=== PATIENT | female | born 2000 | race Caucasian/White ===

== ENCOUNTER 2022-03-09 19:33 | Emergency (ER) | payer MEDICAID, SELFPAY ==
[2022-03-09 19:49] VITALS: BP 139/88; PULSE 118; RESP 16; TEMP 36.8; O2SAT 98
[2022-03-09 19:51] VITALS: RESP 16; O2SAT 98
--- NOTE | 2022-03-09 20:04 | ED.FEVER ---
HPI - Fever General Chief Complaint: Fever Stated Complaint: fever Time Seen by Provider: 03/09/22 19:42 History of Present Illness HPI Narrative: 21-year-old female presents the emergency room for evaluation of subjective fever. Patient states yesterday she developed mild sore throat, sinus congestion, postnasal drip and occasional productive cough. Patient also complaining of body aches and headache. Patient states that she was nauseated earlier today so she was unable to keep down any food or fluids and Tylenol. Denies dysuria denies abdominal pain denies vaginal bleeding denies back pain. Related Data Allergies Allergy/AdvReac Type Severity Reaction Status Date / Time No Known Allergies Allergy Verified 03/09/22 19:53 Review of Systems Review of Systems: CONSTITUTIONAL: Reports fever EYES: Denies visual changes, redness, or discharge. ENT: Reports rhinorrhea, congestion, sore throat, or otalgia. CARDIOVASCULAR: Denies chest pain, palpitations, or edema. RESPIRATORY: Denies cough or dyspnea. GASTROINTESTINAL: Denies abdominal pain, nausea, vomiting, or diarrhea. GENITOURINARY: Denies dysuria or hematuria. SKIN: Denies rash or itching. MUSCULOSKELETAL: Reports myalgias NEUROLOGIC: Denies headache, numbness, dizziness, or weakness. PSYCHIATRIC: Denies anxiety or depression. Exam Narrative: GENERAL: Well-appearing, well-nourished, and in no acute distress. HEAD: Normocephalic, atraumatic. EYES: PERRLA and EOMI. ENT: Nares clear, no rhinorrhea or epistaxis. Mucous membranes moist. Oropharynx without tonsillar hypertrophy exudate or other lesions. Bilateral TMs pearly garcia nonbulging NECK: Supple. No adenopathy or masses. No carotid bruits or JVD CHEST: Clear to auscultation. No respiratory distress. No wheezes rales or rhonchi HEART: Regular rate and rhythm. No murmur heard. Normal peripheral pulses. ABDOMEN: Soft, nontender, nondistended, normal active bowel sounds. EXTREMITIES: Normal range of motion. No edema. SKIN: Warm, dry, no rash. NEURO: No focal deficits. Alert and oriented x3. PSYCH: Normal mood and affect. Course Vital Signs Vital signs: Vital Signs Temperature 36.8 C 03/09/22 19:49 Pulse Rate 118 H 03/09/22 19:49 Respiratory Rate 16 03/09/22 19:49 Blood Pressure 139/88 03/09/22 19:49 Pulse Oximetry 98 03/09/22 19:49 Temperature 36.8 C 03/09/22 19:49 Pulse Rate 118 H 03/09/22 19:49 Respiratory Rate 16 03/09/22 19:51 Blood Pressure 139/88 03/09/22 19:49 Pulse Oximetry 98 03/09/22 19:51 MDM - Fever MDM Narrative Medical decision making narrative: 21-year-old female presents the emergency room for evaluation of body aches and subjective fever. Patient complaining of sinus congestion, postnasal drip, runny nose, body aches, and occasional productive cough since yesterday. Flu and COVID swabs were both negative. Long test was negative strep test was negative as well. Prior to discharge,. Patient stated that she was having some dysuria and frequent urination for the past couple of days. Denied any suprapubic pain or lower back pain. Urine came back suspicious of a UTI. Will medicate patient with Keflex. Lab Data Labs: Lab Results 03/09/22 03/09/22 03/09/22 Range/Units 20:07 21:02 21:02 Urine Color (Yellow) Urine Appearance (Clear) Urine pH (5.0-9.0) Ur Specific [place] (1.001-1.035) Urine Protein (Negative) mg/dL Urine Glucose (UA) (Negative) mg/dL Urine Ketones (Negative) mg/dL Ur Blood (Man) (Negative) Urine Nitrate (Negative) Urine Bilirubin (Negative) Urine Urobilinogen (<2.0) mg/dL Leukocyte Esterase Rfl (Negative) BENJAMIN/UL Urine RBC (0-2) /hpf Urine WBC /hpf Ur Squamous Epith Cells (Few) /hpf Urine Bacteria /hpf Urine Mucus /lpf Monoscreen Negative (Negative) Influenza A (RT-PCR) Negative (Negative) Influenza B (RT-PCR) Negative (Negativ
[2022-03-09] MEDS: ONDANSETRON HCL ODT 4 MG TABLET PO (20:05)
[2022-03-09 20:49] LABS: Influenza A QL RT-PCR Negative (Negative); Influenza B QL RT-PCR Negative (Negative); SARS-CoV-2 RNA PCR Negative
[2022-03-09 21:34] LABS: Monoscreen Negative (Negative); Negative Monotest Control Negative (Negative); Positive Monotest Control Positive (Positive)
[2022-03-09 21:35] LABS: Appearance Urine Clear (Clear); Bilirubin Urine 1+ (Negative); Blood Urine Negative (Negative); Color Urine Yellow (Yellow); Glucose Urine UA Negative (Negative); Ketones Urine 2+ mg/dL (Negative); Leukocyte Esterase Ur 1+ LEU/UL (Negative); Nitrate Urine Negative (Negative); Protein Urine 1+ mg/dL (Negative)
[2022-03-09 21:41] LABS: Bacteria Urine 2+ /hpf; Mucus Urine Moderate /lpf; Squamous Epithelial Cell Urine Many /hpf (Few); WBC Urine 31-50 /hpf
[2022-03-09 21:42] LABS: Add Urine Microscopic? YES
[2022-03-09] MEDS: CEPHALEXIN 500 MG CAPSULE PO (22:04)
[2022-03-09 22:10] VITALS: BP 122/76; PULSE 100; RESP 20; TEMP 36.7; O2SAT 98
== END 2022-03-09 22:11 | disposition home or self-care (01) ==
PROVIDERS: Emergency Provider Nurse Practitioner Family
DX: N39.0 Urinary tract infection, site not specified (principal); Z20.822 Contact with and (suspected) exposure to COVID-19
CPT/HCPCS: 81001; 86308; 87081; 87086; 87088; 87502; 87880; 99283; A9270; C9803; U0003; U0005

== ENCOUNTER 2022-07-05 21:57 | Observation (INO) | payer OTHER, SELFPAY ==
[2022-07-05 22:00] VITALS: BMI 40.8
[2022-07-05 22:15] VITALS: BP 132/89; PULSE 103
[2022-07-05 22:16] VITALS: BP 128/87; PULSE 98
[2022-07-05 22:31] VITALS: BP 136/87; PULSE 94
[2022-07-05 22:46] VITALS: BP 131/81; PULSE 96
[2022-07-05 23:01] VITALS: BP 114/79; PULSE 95
[2022-07-05 23:15] VITALS: BP 129/82; PULSE 92
--- NOTE | 2022-07-09 07:23 | PM.OBTRLD ---
OB - Triage/Final Diagnosis Visit Information Reason for evaluation: threatened labor Comments/Additional reasons for admission: I have assessed the risk for this patient, Vivian Mallory, and determined that she would benefit from observation care.
== END 2022-07-05 23:45 | disposition home or self-care (01) ==
PROVIDERS: Admitting Provider Obstetrics & Gynecology; Visit Provider Obstetrics & Gynecology
DX: O47.03 False labor before 37 completed weeks of gestation, third trimester (principal); Z3A.33 33 weeks gestation of pregnancy
CPT/HCPCS: G0378; G0379

== ENCOUNTER 2022-07-25 15:03 | Emergency (ER) | payer OTHER, SELFPAY ==
[2022-07-25 15:09] VITALS: BP 133/89; PULSE 99; RESP 18; TEMP 36.8; O2SAT 100
--- NOTE | 2022-07-25 15:34 | ED.EAR ---
HPI - Ear Problem General Chief complaint: Ear Stated complaint: ear pain, trouble hearing Time Seen by Provider: 07/25/22 15:34 Source: patient, RN notes reviewed and old records reviewed Mode of arrival: ambulatory Limitations: no limitations History of Present Illness HPI Narrative: 21-year-old female presents to the [facility] with complaints of ear pain and trouble hearing. Has been going on for several days. States it is in both ears, severity changes from ear to ear. Patient has not taken anything because she is 36 weeks . Did see her OB 2 days ago. Denies fevers. MD Complaint: ear pain Related Data Home Medications Medication Instructions Recorded Confirmed aspirin 81 mg tablet,delayed 81 mg PO DAILY 06/19/22 07/23/22 release vits no.126-ferrous fum tablet PO 06/19/22 07/23/22 28 mg iron-folic acid 800 mcg tablet (Classic ) ferrous sulfate 325 mg (65 mg 325 mg PO DAILY 07/02/22 07/23/22 iron) tablet folic acid 800 mcg tablet 0.8 mg PO DAILY 07/02/22 07/23/22 Allergies Allergy/AdvReac Type Severity Reaction Status Date / Time No Known Allergies Allergy Verified 07/23/22 13:48 Review of Systems Review of Systems: All systems reviewed & are unremarkable except as noted in HPI and below Constitutional: Constitutional: Reports no additional constitutional complaints, Denies chills and Denies fever(s) Eyes: Eyes: Reports no additional eye complaints ENT: Reports as per HPI, Denies change in voice, Denies dental pain, Denies vertigo, Denies dizziness and Denies throat swelling Comments: Ear pain, bilateral Cardiovascular: Cardiovascular: Reports no additional cardiovascular complaints, Denies chest pain and Denies dyspnea Respiratory: Respiratory: Reports no additional respiratory complaints, Denies cough and Denies dyspnea Gastrointestinal: Gastrointestinal: Reports no additional gastrointestinal complaints, Denies abdominal pain, Denies nausea and Denies vomiting Musculoskeletal: Musculoskeletal: Reports no additional musculoskeletal complaints Integumentary/Breasts: Skin/Breast: Reports system reviewed and no additional complaints, except as docu Neurologic: Reports system reviewed and no additional complaints, except as documented, Denies vertigo and Denies dizziness Psychiatric: Psychiatric: Reports no additional psychiatric complaints Allergic/Immunologic: Allergic/Immunologic: Reports no additional allergic/immunologic complaints and Denies throat swelling PMFSH Past Medical History Medical History Amenorrhea, primary PCOS (polycystic ovarian syndrome) Family History Family History Mother Hypertension Other Heart disease Social History Social History Smoking status: Never smoker Alcohol intake: never Substance use: never Substance use type: does not use Additional living arrangements comments: Engaged Gender identity (if verbalized by the patient): Female Sexual Orientation (if Verbalized by the Patient): Straight or Heterosexual Comments At the time of my signature, I reviewed and agree with the nursing past medical, surgical, social, and family history. There is no relevant family history pertinent to the patient complaint. Exam Const: General: healthy appearing, no acute distress and well nourished Nutritional Appearance: well nourished Orientation/consciousness: patient oriented x3 Limitations: no limitations HENMT: Head: normal to inspection Ears: external ears normal, EAC's normal and TM abnormal bulging on the left and erythematous on the left Face/Nose/Sinus: Normal external nose present, Normal nasal mucous membranes and turbinates present and normal facial exam Face and sinus: normal facial exam Mouth: Yes Normal oral and palatal mucosa present Throat:
== END 2022-07-25 15:45 | disposition home or self-care (01) ==
PROVIDERS: Emergency Provider Nurse Practitioner
DX: O99.891 Other specified diseases and conditions complicating pregnancy (principal); H66.92 Otitis media, unspecified, left ear; Z3A.36 36 weeks gestation of pregnancy
CPT/HCPCS: 59025; 99213; G0463

== ENCOUNTER 2022-08-08 11:12 | Outpatient (RCR) | payer OTHER, SELFPAY ==
[2022-07-08 16:30] VITALS: BP 121/79; PULSE 95
[2022-07-18 16:05] VITALS: BP 126/81; PULSE 88
[2022-07-22 15:04] VITALS: BP 119/78; PULSE 99
[2022-07-25 14:52] VITALS: BP 114/86; PULSE 98
[2022-07-29 14:59] VITALS: BP 135/78; PULSE 89
[2022-08-01 16:06] VITALS: BP 125/81; PULSE 88
[2022-08-05 10:10] VITALS: BP 134/90; PULSE 93
--- NOTE | ~2022-08-08 | US_ITS ---
EXAMINATION: US OB BPP wo non-stress DATE: 07/29/2022 15:08 INDICATION: weight difference during third trimester TECHNIQUE: Real-time ultrasound of the pelvis was performed. COMPARISON: 07/22/2022 FINDINGS: There are two living fetuses. The placenta(s) is/are anterior. The amniotic fluid volume is normal. Fetus A: Presentation is vertex. heart rate is 134 beats per minute (bpm). Biophysical profile performed by the technologist: breathing (30 sec sustained breathing in 30 minutes): 2 out of 2 movement (3 gross body movements in 30 minutes): 2 out of 2 tone (one episode of npiipmb-hgtkurtpm-gbifhzy limb movement): 2 out of 2 Amniotic fluid pocket (2 cm): 2 out of 2 Total score: 8 out of 8 Fetus B: Presentation is in transverse lie. heart rate is 136 bpm. Biophysical profile performed by the technologist: breathing (30 sec sustained breathing in 30 minutes): 2 out of 2 movement (3 gross body movements in 30 minutes): 2 out of 2 tone (one episode of xhwruop-mzctnxjml-wubvsek limb movement): 2 out of 2 Amniotic fluid pocket (2 cm): 2 out of 2 Total score: 8 out of 8 IMPRESSION: 1. Living twin fetuses. 2. Normal placenta(s). 3. Biophysical profile 8 out of 8 for fetus A and 8 out of 8 for fetus B. Reviewed, dictated and finalized at location A.
--- NOTE | ~2022-08-08 | US_ITS ---
EXAMINATION: US OB BPP multi gestation DATE: 07/08/2022 16:09 INDICATION: Biophysical profile during third trimester TECHNIQUE: Real-time ultrasound of the pelvis was performed. COMPARISON: None. FINDINGS: There are two living fetuses. The placenta(s) is/are anterior. The amniotic fluid volume is subjecti vely normal. Fetus A: Presentation is vertex. heart rate is 145 beats per minute (bpm). Biophysical profile performed by the technologist: breathing (30 sec sustained breathing in 30 minutes): 2 out of 2 movement (3 gross body movements in 30 minutes): 2 out of 2 tone (one episode of pvwurvq-neytqbyys-wiusxaj limb movement): 2 out of 2 Amniotic fluid pocket (2 cm): 2 out of 2 Total score: 8 out of 8 Fetus B: Presentation is transverse. heart rate is 148 bpm. Biophysical profile performed by the technologist: breathing (30 sec sustained breathing in 30 minutes): 2 out of 2 movement (3 gross body movements in 30 minutes): 2 out of 2 tone (one episode of bhfxgue-rdptgzrhe-ngpvlop limb movement): 2 out of 2 Amniotic fluid pocket (2 cm): 2 out of 2 Total score: 8 out of 8 IMPRESSION: 1. Living twin fetuses. 2. Normal placenta(s). 3. Biophysical profile 8 out of 8 for fetus A and 8 out of 8 for fetus B. Reviewed, dictated and finalized at location A.
--- NOTE | ~2022-08-08 | US_ITS ---
EXAMINATION: US OB BPP multi gestation DATE: 07/22/2022 16:10 INDICATION: Biophysical profile during third trimester twin TECHNIQUE: Real-time ultrasound of the pelvis was performed. COMPARISON: None. FINDINGS: There are two living fetuses. The placenta(s) is/are anterior. The amniotic fluid volume is subjecti vely normal. Fetus A: Presentation is vertex. heart rate is 133 beats per minute (bpm). Biophysical profile performed by the technologist: breathing (30 sec sustained breathing in 30 minutes): 2 out of 2 movement (3 gross body movements in 30 minutes): 2 out of 2 tone (one episode of hheqssj-sfvkplogn-miijqor limb movement): 2 out of 2 Amniotic fluid pocket (2 cm): 2 out of 2 Total score: 8 out of 8 Fetus B: Presentation is transverse with the head to the maternal left. heart rate is 130 bpm. Biophysical profile performed by the technologist: breathing (30 sec sustained breathing in 30 minutes): 2 out of 2 movement (3 gross body movements in 30 minutes): 2 out of 2 tone (one episode of gxskayo-rksnlrkdl-hqnjztk limb movement): 2 out of 2 Amniotic fluid pocket (2 cm): 2 out of 2 Total score: 8 out of 8 IMPRESSION: 1. Living twin fetuses. 2. Normal placenta(s). 3. Biophysical profile 8 out of 8 for fetus A and 8 out of 8 for fetus B. Reviewed, dictated and finalized at location A.
--- NOTE | ~2022-08-08 | US_ITS ---
EXAMINATION: US OB BPP multi gestation DATE: 07/18/2022 16:10 CDT INDICATION: Twin gestation TECHNIQUE: Real-time transabdominal obstetric ultrasound. FINDINGS: 07/08/2022 Twin living intrauterine with placenta located anterior. Twin A is in vertex presentation w ith heart rate of 141 BPM. Twin B is in transverse presentation with heart rate of 135 BP M. Twin A: Biophysical profile: breathin of 2 movement: 2 of 2 tone: 2 of 2 Amniotic flud pocket: 2 of 2 Total score: 8 of 8 Twin B: Biophysical profile: breathin of 2 movement: 2 of 2 tone: 2 of 2 Amniotic flud pocket: 2 of 2 Total score: 8 of 8 IMPRESSION: 1. Twin living intrauterine . 2: Total biophysical profile score of 8/8 for both twins. Reviewed, dictated and finalized at location A.
--- NOTE | ~2022-08-08 | US_ITS ---
EXAMINATION: US OB BPP multi gestation DATE: 08/05/2022 11:57 INDICATION: Twin during third trimester. Assess biophysical profile. TECHNIQUE: Real-time ultrasound of the pelvis was performed. The interpreting radiologist was not pre sent for the study. COMPARISON: None. FINDINGS: Chronic diamniotic pregnancies with thick membrane two living fetuses. The placenta(s) is /are anterior. The amniotic fluid volume is subjectively normal. Fetus A: Fetus a is in the more caudally positioned gestational sac and is in vertex position. cardiac a ctivity and movement are noted. heart rate is 130 beats per minute (bpm). Biophysical profile performed by the technologist: breathing (30 sec sustained breathing in 30 minutes): 0 out of 2 movement (3 gross body movements in 30 minutes): 2 out of 2 tone (one episode of gxfqtzc-unagcijnx-xvbjovh limb movement): 2 out of 2 Amniotic fluid pocket (2 cm): 2 out of 2 Total score: 6 out of 8 Fetus B: Fetus B is in the more cephalad positioned gestational sac and is in transverse lie with vertex to ma ternal left. cardiac activity and movement are noted. heart rate is 132 bpm. Biophysical profile performed by the technologist: breathing (30 sec sustained breathing in 30 minutes): 2 out of 2 movement (3 gross body movements in 30 minutes): 2 out of 2 tone (one episode of iiiypvd-vmcrniyru-omvvges limb movement): 2 out of 2 Amniotic fluid pocket (2 cm): 2 out of 2 Total score: 8 out of 8 IMPRESSION: 1. Living twin fetuses. 2. Biophysical profile 6 out of 8 for fetus A and 8 out of 8 for fetus B. Reviewed, dictated and finalized at location A.
--- NOTE | 2022-08-08 11:48 | PC.NURSE ---
Dr. Khan returned page and informed BP's 132/92, 124/94, 128/91, and 132/90. Pt denies headache, visual disturbance, epigastric/RUQ pain. Slight swelling in feet, but no pitting. Orders received for labs.
[2022-08-08 12:23] LABS: Basophils Percent Auto 0.3 % (0.2-1.2); Eosinophils Absolute Auto 0.1 K/mm3 (0-0.3); Eosinophils Percent Auto 0.6 % (0-4.4); Hematocrit 35.3 % (37.0-47.0); Hemoglobin 11.1 g/dL (12.0-15.0); Immature Granulocyte Absolute 0.13 K/mm3 (0.00-0.031); Immature Granulocyte Percent A 1.1 % (0-0.5); Immature Platelet Fraction Pct 17.1 % (0.9-11.2); Lymphocytes Absolute Auto 2.72 K/mm3 (0.9-3.2); Lymphocytes Percent Auto 23.7 % (18.3-44.2); Mean Corpuscular HGB Conc 31.4 g/dl (32-36); Mean Corpuscular Hemoglobin 25.5 pg (26-34); Mean Corpuscular Volume 81.1 fl (80-100); Mean Platelet Volume 11.7 fl (7.4-10.4); Monocytes Absolute Auto 0.6 K/mm3 (0.1-0.6); Neutrophils Absolute Auto 7.9 K/mm3 (1.3-6.7); Neutrophils Percent Auto 69.3 % (45.5-73.1); Nucleated Red Blood Cells Perc 0.3 % (0.0-0.2); Platelet Count Result 148 k/mm3 (150-375); Red Blood Count 4.35 M/mm3 (4.2-5.4); Red Cell Distribution Width 17.6 % (11.5-14.5); White Blood Count 11.5 K/mm3 (4.5-10.0)
[2022-08-08 12:34] LABS: Alanine Aminotransferase 13 U/L (6-35); Albumin Level 3.5 g/dL (3.5-5.1); Alkaline Phosphatase 186 U/L (38-126); Anion Gap 11 mmol/L (8-16); Aspartate Amino Transferase 20 U/L (14-36); Bilirubin,Total 1.2 mg/dL (0.2-1.3); Blood Urea Nitrogen 10 mg/dL (7-17); Calcium 8.7 mg/dL (8.4-10.2); Carbon Dioxide 23 mmol/L (22-30); Chloride 104 mmol/L (98-107); Estimated Glomerular Filt Rate > 60; Glucose 84 mg/dL (65-110); Potassium 3.6 mmol/L (3.4-5.0); Sodium 138 mmol/L (137-145)
[2022-08-08 12:36] LABS: Total Protein Urine Random 33 mg/dL; Ur Ttl Prot Creatinine Ratio 0.29 mg/mg (0-0.20)
[2022-08-08 12:37] LABS: Add Urine Microscopic? YES; Appearance Urine Cloudy (Clear); Bacteria Urine Trace /hpf; Bilirubin Urine Negative (Negative); Blood Urine Negative (Negative); Color Urine Yellow (Yellow); Glucose Urine UA Negative (Negative); Ketones Urine Negative (Negative); Leukocyte Esterase Ur Trace LEU/UL (Negative); Mucus Urine Rare /lpf; Nitrate Urine Negative (Negative); Protein Urine 1+ mg/dL (Negative); RBC Urine 0-2 /hpf (0-2); Specific Grav Ur 1.017 (1.001-1.035); Squamous Epithelial Cell Urine Few /hpf (Few); Urobilinogen Urine Negative mg/dL (<2.0)
--- NOTE | 2022-08-08 12:41 | PC.NURSE ---
Dr. Khan called back after reviewing lab results and states pt can go home. Pt has appointment in the office on Thursday.
[2022-08-08 12:50] VITALS: BP 128/90; PULSE 99
--- NOTE | 2022-08-21 10:21 | PM.OBDSVD ---
DS: Admitting Diagnosis Discharge Date Admitting Diagnosis OB - DS: Summary OB Procedures : NST OB Procedures Intrapartum: OB Procedures: : None Time Spent with Patient Time attestation: Total time spent providing and/or coordinating discharge services: Discharge Plan Departure Attending Physician: Jasbir Khan Primary Care Provider: PHYSICIAN,BANQUET SERVER ON CALL Prescriptions: No Action Classic 28 mg iron- 800 mcg tablet PO ferrous sulfate 325 mg (65 mg iron) tablet 325 mg PO DAILY hydrocodone-acetaminophen 5-325 mg Tablet 1 tablet PO Q4-6H PRN (Reason: Moderate Pain (4-6)) Qty: 30 0RF ibuprofen 600 mg Tablet 600 mg PO Q6H PRN (Reason: Cramping) Qty: 30 0RF
== END 2022-09-12 07:40 | disposition home or self-care (01) ==
LOC: ANHOBOP 11:12
PROVIDERS: Visit Provider Obstetrics & Gynecology
DX: O30.003 Twin pregnancy, unspecified number of placenta and unspecified number of amniotic sacs, third trimester (principal); Z3A.33 33 weeks gestation of pregnancy; Z3A.35 35 weeks gestation of pregnancy; Z3A.37 37 weeks gestation of pregnancy
CPT/HCPCS: 36415; 59025; 76819; 80053; 81001; 82570; 84156; 84550; 85025; 85055

== ENCOUNTER 2022-08-12 06:37 | Inpatient (IN) | payer OTHER, SELFPAY ==
--- NOTE | 2022-07-29 14:04 | PC.NURSE ---
Verified with OR schedule and Patient--C/S for twins on 08/05/22 at 0730
[2022-08-12] VITALS (47 sets, daily range): BP systolic 107–164; BP diastolic 63–149; PULSE 73–157; RESP 14–19; TEMP 36–36.6; O2SAT 98–100; BMI 42.0
--- OUTSIDE RECORDS SUMMARY | 2022-08-12 06:46 | XMS_ITS ---
:2000 Author Care Team Providers Name Role Phone Vandana Mujica Primary Care Provider Unavailable Allergies Code Code System Name Reaction Severity Status Onset NKDA ? Medications Name Status Start Date Stop Date ? ? Aurovela Fe 1.5/30 (28) 1.5 mg-30 mcg (21)/75 mg (7) tablet Comp leted ? 02/24/2022 TAKE 1 TABLET BY MOUTH EVERY DAY cephalexin 500 mg capsule Active ? Not av ailable clomiphene citrate 50 mg tablet Completed ? 03/28/2022 TAKE 1 TABLET BY MOUTH EVERY DAY FOR THE FIRST 10 DAYS OF [facility] fluconazole 150 mg tablet Active ? Not av ailable medroxyprogesterone 10 mg tablet Completed ? 03/28/2022 TAKE 1 TABLET BY MOUTH DAILY FOR 7 DAYS metformin 500 mg tablet Completed ? 03/28/20 22 TAKE 1 TABLET BY MOUTH TWICE DAILY WITH MEALS Vienva 0.1 mg-20 mcg tablet Completed ? 03/12 TAKE 1 TABLET BY MOUTH EVERY DAY Problems Name Status Onset Date Source ? Body Mass Index 30+ - Obesity Active 02/24/2022 ? Monochorionic Diamniotic Twin Active 02/25/20 22 ? Polycystic Ovary Syndrome Active 02/24/2022 ? Supervision of with History of Infertility Active 02/24/2022 ? Unknown 03/28/2022 ? Maternal Obesity Complicating , Childbirth and the Acti ve ? ? Puerperium, Antepartum Dichorionic Diamniotic Twin Active ? ? Procedures Date Name Performed by ? 02/24/2022 US, Obstetric, Limited [facility] [address] [place] [address] [phone]
--- NOTE | 2022-08-12 07:13 | LDADM ---
This patient, Vivian Mallory, was admitted to Labor/Delivery/Recovery 120 on 08/12/22 at 06:37. Plans for labor, pain management and were discussed with patient. Patient/family oriented to hospital policies and general routines including ID bracelet, bed and alarms, visiting hours, pain management, procedures, bathroom and other care routines, personal items, smoking policy, room service/diet and guest tray routines, security routines, and visiting hours. Patient/Family are encouraged to report perceived risks to care and to ask questions if they do not understand what they are told or what they should do. See OBIX for further documentation.
--- NOTE | 2022-08-12 07:21 | WPDHPUPDATE1 ---
History and Physical Update Update Date/Time: 08/12/22 07:21 Year old female presents for primary delivery. Have been scheduled last week but declined delivery. Ultrasound yesterday revealed vertex breech presentation and now she agrees to operative delivery. We will proceed with delivery. History and Physical has been reviewed, including an updated exam of the patient. There are NO changes in the patient's condition. Risks, benefits, and alternatives have been discussed and questions answered. Patient agrees to proceed with procedure.
[2022-08-12 07:54] LABS: Basophils Percent Auto 0.3 % (0.2-1.2); Eosinophils Absolute Auto 0.1 K/mm3 (0-0.3); Eosinophils Percent Auto 0.5 % (0-4.4); Hematocrit 38.4 % (37.0-47.0); Hemoglobin 11.9 g/dL (12.0-15.0); Immature Granulocyte Absolute 0.06 K/mm3 (0.00-0.031); Immature Granulocyte Percent A 0.5 % (0-0.5); Immature Platelet Fraction Pct 18.2 % (0.9-11.2); Lymphocytes Absolute Auto 3.02 K/mm3 (0.9-3.2); Lymphocytes Percent Auto 25.3 % (18.3-44.2); Mean Corpuscular Hemoglobin 26.3 pg (26-34); Mean Platelet Volume 13.3 fl (7.4-10.4); Monocytes Absolute Auto 0.7 K/mm3 (0.1-0.6); Monocytes Percent Auto 5.6 % (2.6-8.5); Neutrophils Absolute Auto 8.1 K/mm3 (1.3-6.7); Neutrophils Percent Auto 67.8 % (45.5-73.1); Nucleated Red Blood Cells Perc 0.2 % (0.0-0.2); Platelet Count Result 165 k/mm3 (150-375); Red Blood Count 4.52 M/mm3 (4.2-5.4); Red Cell Distribution Width 19.1 % (11.5-14.5)
--- NOTE | 2022-08-12 08:09 | WPDANESEPPF ---
Anes - Initial Pre Proc Eval Procedure: Operation Date: 08/05/22 07:30 Proposed Procedures p Primary Section - Jasbir Khan MD Operation Date: 08/12/22 08:30 Proposed Procedures p Section - Jasbir Khan MD Date/Time: 08/12/22 08:09 Surgeon: Jasbir Khan MD Pre Op Diagnosis: IOL/TWINS Patient Data Age: 21 Gender: F Height: 1.68 m Weight: 118 kg Last Vital Signs Pulse 99 08/12/22 07:16 BP 137/96 H 08/12/22 07:16 O2 Del Method Room Air 08/12/22 07:12 Allergies Allergy/AdvReac Type Severity Reaction Status Date / Time No Known Allergies Allergy Verified 08/05/22 08:58 Home Medications Medication Instructions Recorded Confirmed Type aspirin 81 mg tablet,delayed 81 mg PO DAILY 06/19/22 08/12/22 History release vits no.126-ferrous fum tablet PO 06/19/22 08/05/22 History 28 mg iron-folic acid 800 mcg tablet (Classic ) ferrous sulfate 325 mg (65 mg 325 mg PO DAILY 07/02/22 08/12/22 History iron) tablet folic acid 800 mcg tablet 0.8 mg PO DAILY 07/02/22 08/12/22 History Laboratory Tests 08/12/22 08/12/22 08/12/22 07:01 07:01 07:01 WBC 12.0 K/mm3 H K/mm3 (4.5-10.0) RBC 4.52 M/mm3 M/mm3 (4.2-5.4) Hgb 11.9 g/dL L g/dL (12.0-15.0) Hct 38.4 % % (37.0-47.0) MCV 85.0 fl fl (80-100) MCH 26.3 pg pg (26-34) MCHC 31.0 g/dl L g/dl (32-36) RDW 19.1 % H % (11.5-14.5) Plt Count 165 k/mm3 k/mm3 (150-375) MPV 13.3 fl H fl (7.4-10.4) Immature Gran % (Auto) 0.5 % % (0-0.5) Neut % (Auto) 67.8 % % (45.5-73.1) Lymph % (Auto) 25.3 % % (18.3-44.2) [place] % (Auto) 5.6 % % (2.6-8.5) Eos % (Auto) 0.5 % % (0-4.4) Baso % (Auto) 0.3 % % (0.2-1.2) Lymph # (Auto) 3.02 K/mm3 K/mm3 (0.9-3.2) [place] # (Auto) 0.7 K/mm3 H K/mm3 (0.1-0.6) Eos # (Auto) 0.1 K/mm3 K/mm3 (0-0.3) Baso # (Auto) 0.0 K/mm3 K/mm3 (0.0-0.1) Abs Immat Gran (auto) 0.06 K/mm3 H K/mm3 (0.00-0.031) Absolute Neuts (auto) 8.1 K/mm3 H K/mm3 (1.3-6.7) Absolute Nucleated RBC 0.0 K/mm3 K/mm3 (0.0-0.012) Nucleated RBC % 0.2 % % (0.0-0.2) % Immature Plt Fraction 18.2 % H % (0.9-11.2) Sodium Potassium Chloride Carbon Dioxide Anion Gap BUN Creatinine Estim Creat Clear Calc Estimated GFR Glucose Calcium Total Bilirubin AST ALT Alkaline Phosphatase Total Protein Albumin RPR Pending Hep Bs Antigen HIV 1&2 Ab/P24 Ag 4thGn Rubella IgG Antibody Pending 08/12/22 08/12/22 08/12/22 07:01 07:01 07:45 WBC RBC Hgb Hct MCV MCH MCHC RDW Plt Count MPV Immature Gran % (Auto) Neut % (Auto) Lymph % (Auto) [place] % (Auto) Eos % (Auto) Baso % (Auto) Lymph # (Auto) [place] # (Auto) Eos # (Auto) Baso # (Auto) Abs Immat Gran (auto) Absolute Neuts (auto) Absolute Nucleated RBC Nucleated RBC % % Immature Plt Fraction Sodium Pending Potassium Pending Chloride Pending Carbon Dioxide Pending Anion Gap Pending BUN Pending Creatinine Pending Estim Creat Clear Calc Pending Estimated GFR Pending Glucose Pending Calcium Pending Total Bilir
[2022-08-12] MEDS: LACTATED RINGERS 1,000 ML 125 ML IV CONT (08:11)
[2022-08-12 08:20] LABS: Alanine Aminotransferase 14 U/L (6-35); Albumin Level 3.7 g/dL (3.5-5.1); Alkaline Phosphatase 212 U/L (38-126); Anion Gap 14 mmol/L (8-16); Aspartate Amino Transferase 21 U/L (14-36); Bilirubin,Total 1.4 mg/dL (0.2-1.3); Blood Urea Nitrogen 9 mg/dL (7-17); Carbon Dioxide 20 mmol/L (22-30); Chloride 105 mmol/L (98-107); Estimated CRCL calculation 127 ml/min; Estimated Glomerular Filt Rate > 60; Glucose 81 mg/dL (65-110); Potassium 3.7 mmol/L (3.4-5.0); Sodium 139 mmol/L (137-145)
[2022-08-12 08:42] LABS: HIV 1/2 Ab P24 Ag Result Negative (Negative)
[2022-08-12] MEDS: ceFAZolin 2 GM/D5W 50 ML 2 GM/50 ML BAG IVPB (08:45)
[2022-08-12 08:48] LABS: Rubella IgG Antibody 9.5 IU/ML
[2022-08-12 08:51] LABS: Hepatitis B Surface Antigen Negative (Negative)
[2022-08-12] MEDS: KETOROLAC 15 MG/ML VIAL (*BKC) IV PUSH (09:33)
--- NOTE | 2022-08-12 09:55 | PM.OBPRVD ---
OB - Delivery Note Procedure Procedure: Procedures Operation Date: 08/05/22 07:30 <No data on this case meets the specified criteria> Operation Date: 08/12/22 08:30 <No data on this case meets the specified criteria> Events: Other (1. Twin gestation with discordant growth. 2. Vertex breech presentation ) Delivery monitor: External FHT and External Uterine Route of delivery: Prior to decision for section, [facility] labor guidelines were considered and discussed with the patient and staff. Decision made to proceed with the section.: Yes Specimen: Yes Quantitative Blood Loss (ml): 1,200 Anesthesia type: Spinal Disposition: Floor Complications: None Narrative: Patient was prepped and draped in the usual manner for this procedure. Pfannenstiel incision was made and this was carried down to the fascia which was then extended bilaterally the length of the skin incision. Superiorly and inferiorly dissected away from the rectus muscles which were then and the peritoneum was readily entered. Bladder flap was developed without difficulty. Uterus scored in the midline and uterine incision extended the length of the lower segment. Baby a vertex was delivered without difficulty cord clamped cut and the placenta itself delivered as well. The breech presentation was then internally rotated to vertex presentation and delivered again without difficulty. Cord clamped cut and manual removal of the placenta. Uterus was exteriorized cleared of membranes and clots and closed using 0 Monocryl in a running interlocking manner. Uterus was turned to the abdomen gutters were cleared of serosanguineous fluid and clots in the uterine incision again inspected and noted to be hemostatic. No subfascial tissue was noted be bleeding and the fascia was then approximated using 0 Vicryl from the left angle to the midline and the right angle to midline with good approximation noted. Subcutaneous tissue approximated using 0 plain suture and harriett were then used to approximate the skin edges. Patient was then sent to recovery room in stable condition. [place] Baby Weeks of gestation at delivery: 38 Narrative: Gestational age at delivery is 38 weeks Baby A male weight 6 lb 12oz 8 and 9 at 1 and 5minutes respectively Baby B male weight 5 lb 10oz Apgars 8 and 9 at 1 and 5minutes respectively [facility] Delivery Billing Delivery Delivery: Delivery Charge
[2022-08-12] MEDS: fentaNYL CITRATE INJ (*CRX) 100 MCG/2 ML VIAL 25 MCG IV PUSH (11:31)
--- NOTE | 2022-08-12 15:42 | PC.NURSE ---
[id number] Introductions were made, then consulted with patient to assess needs related to . Mother led the conversation with her?plans to breastfeed?her infants and was hesitant to communicate and receive assistance. Resources provided for inpatient and outpatient services using a resource guide and mom/baby guide. Mother voiced understanding of information and requested assistance with a latch after a few moments of time. Infant B had detached and latched to areola. Assisted mother with an effective latch to the left breast using cross cradle positioning. After 15 minutes infant had a wet and stool diaper changed, then was offered the breast using football positioning and infant effectively latched and breastfed. A is demonstrating feeding cues and they were visualized by the mother and support persons. RN assisted infant to mothers right breast using the football positioning after changing a wet and stool diaper. Infant effectively breastfed with swallowing. Mother voiced understanding how to watch and listen for swallowing. Reported to primary RN.
[2022-08-12 16:29] LABS: Rapid Plasma Reagin Non-Reactive (NonReactive)
[2022-08-12] MEDS: ACETAMINOPHEN 325 MG TABLET 650 MG PO (17:01)
[2022-08-12] MEDS: IBUPROFEN 600 MG TABLET PO (17:03)
--- NOTE | 2022-08-12 18:52 | OBPPTRN ---
1229 Patient transferred to post room #286 via stretcher. Support person present. Oriented to unit, room, information board, rooming in, admission packet and security measures. Patient verbalizes understanding.
[2022-08-12] MEDS: HYDROcodone/acetaminophen (*CRX) 5-325 MG TABLET 1 TAB PO (20:35)
[2022-08-13 00:40] VITALS: BP 124/78; PULSE 82; RESP 18; TEMP 37; O2SAT 98
[2022-08-13] MEDS: HYDROcodone/acetaminophen (*CRX) 5-325 MG TABLET 1 TAB PO ×3 (00:46→21:48)
[2022-08-13 03:45] VITALS: BP 141/90; PULSE 75; RESP 18; TEMP 36.8; O2SAT 100
[2022-08-13] MEDS: IBUPROFEN 600 MG TABLET PO ×3 (03:51→21:47)
[2022-08-13 06:11] LABS: Basophils Percent Auto 0.3 % (0.2-1.2); Eosinophils Percent Auto 0.2 % (0-4.4); Hematocrit 27.1 % (37.0-47.0); Hemoglobin 8.4 g/dL (12.0-15.0); Immature Granulocyte Absolute 0.12 K/mm3 (0.00-0.031); Immature Granulocyte Percent A 0.8 % (0-0.5); Lymphocytes Absolute Auto 2.88 K/mm3 (0.9-3.2); Mean Corpuscular Hemoglobin 26.1 pg (26-34); Mean Corpuscular Volume 84.2 fl (80-100); Monocytes Absolute Auto 1.1 K/mm3 (0.1-0.6); Monocytes Percent Auto 6.6 % (2.6-8.5); Neutrophils Absolute Auto 11.9 K/mm3 (1.3-6.7); Neutrophils Percent Auto 74.1 % (45.5-73.1); Platelet Count Result 136 k/mm3 (150-375); Red Blood Count 3.22 M/mm3 (4.2-5.4); Red Cell Distribution Width 18.6 % (11.5-14.5)
[2022-08-13 07:45] VITALS: BP 115/71; PULSE 82; RESP 16; TEMP 36.9; O2SAT 98
--- NOTE | 2022-08-13 08:39 | WPDANLDPN2 ---
Anes-Prog Note L&D Date/Time: 08/13/22 08:39 Comfortable throughout: section Neuraxial method: spinal Epidural/Spinal procedure site: clean & non-tender Neuro status: Neuro function grossly intact. Cardiovascular status: normal Respiratory status: normal Airway patency: baseline Mental status: baseline Post-Op hydration status: normal Vital Signs: Last Vital Signs Temp 98.4 F 08/13/22 07:45 Pulse 82 08/13/22 07:45 Resp 16 08/13/22 07:45 BP 115/71 08/13/22 07:45 Pulse Ox 98 08/13/22 07:45 O2 Del Method Room Air 08/13/22 03:45 Pain score (VAS): 0 I/O: Intake & Output 08/12/22 08/13/22 08/13/22 23:59 07:59 15:59 Intake Total 1000 1100 Output Total 200 1050 Balance 800 50 Post-procedural complaints: none Patient feedback: Patient satisfied with anesthetic care.
--- NOTE | 2022-08-13 08:40 | WPDANLDNPN2 ---
Anes-Prog Note L&D-Neuraxial Date/Time: 08/13/22 08:40 Neuraxial medications: intrathecal PF morphine Opiod-related complaints: pruritis mild, no treatment Patient feedback: Patient satisfied with post-operative pain management.
--- NOTE | 2022-08-13 09:26 | PC.NURSE ---
On 08/13/22, the student, Laure Stanton, provided care and completed [facility] documentation on this patient. I have reviewed the student's documentation and agree with the findings.
[2022-08-13 10:30] VITALS: PULSE 82; RESP 16; O2SAT 98
[2022-08-13] MEDS: POLYSACCHARIDE IRON COMPLEX 150 MG CAPSULE PO ×2 (10:35→16:55)
[2022-08-13] MEDS: DOCUSATE SODIUM 100 MG CAPSULE PO ×2 (10:35→16:55)
[2022-08-13] MEDS: MULTIVIT/MIN/PREN/FOL AC/IRON TABLET 1 TAB PO (10:36)
[2022-08-13] MEDS: HYDROcodone/acetaminophen (*CRX) 10-325 MG TABLET 1 TAB PO ×2 (10:36→16:55)
[2022-08-13] MEDS: SIMETHICONE 80 MG TAB.CHEW PO ×3 (10:36→21:48)
--- NOTE | 2022-08-13 12:50 | P.PNOB_ITS ---
OB - PN: Subj Subjective Date/time seen: 08/13/22 11:52 Narrative: POD#1 Vivian reports doing well today. Her bleeding is investigator vice. Her pain is controlled with PO meds. She is tolerating regular diet, voiding, and has ambulated around the room. She is breast feeding. She does not want her sons circumcised. OB - PN: Obj Data Labs CBC & Chem 7: 08/13/22 05:42 08/12/22 07:45 Labs: Laboratory Results - last 24 hr 08/12/22 08/13/22 07:01 05:42 WBC 16.0 H RBC 3.22 L Hgb 8.4 L D Hct 27.1 L MCV 84.2 MCH 26.1 MCHC 31.0 L RDW 18.6 H Plt Count 136 L MPV 13.0 H Immature Gran % (Auto) 0.8 H Neut % (Auto) 74.1 H Lymph % (Auto) 18.0 L Jackson % (Auto) 6.6 Eos % (Auto) 0.2 Baso % (Auto) 0.3 Lymph # (Auto) 2.88 Jackson # (Auto) 1.1 H Eos # (Auto) 0.0 Baso # (Auto) 0.0 Abs Immat Gran (auto) 0.12 H Absolute Neuts (auto) 11.9 H Absolute Nucleated RBC 0.0 Nucleated RBC % 0.0 RPR Non-reactive OB - PN A/P Assessment and Plan (1) S/P section: Code(s): Z98.891 - History of uterine scar from previous surgery Status: Acute Plan day: 1 Plan: routine care Comments: - repeat CBC pending Time Spent With Patient Time: Total time spent is greater than 50% in coordination of care (as documented) at patient's floor/unit and/or counseling patient: Review of Systems Constitutional: Constitutional: Denies chills, Denies fever(s) and Denies headache(s) Eyes: Eyes: Denies change in vision ENT: Denies dizziness and Denies headache(s) Cardiovascular: Cardiovascular: Denies chest pain, Denies palpitations and Denies dyspnea Respiratory: Respiratory: Denies cough and Denies dyspnea Gastrointestinal: Gastrointestinal: Denies nausea and Denies vomiting Genitourinary: Comments: normal bleeding Neurologic: Denies dizziness and Denies headache(s) Endocrine: Endocrine: Denies palpitations Exam Const: General: cooperative, comfortable, no acute distress and obese Orientation/consciousness: patient oriented x3 Resp: Effort & Inspection: normal respiratory effort Auscultation: clear to auscultation bilaterally Cardio: Rate: regular rate GI: Inspection: non-distended and incision (covered with clean dressing) GI Palp: Yes abdominal tenderness (appropriate) and Yes Soft to palpation Auscultation: normal bowel sounds : Other: fundus firm Skin: General skin exam: normal color Neuro: General: patient oriented x3 Extrem: General: normal to inspection Psych: Appearance: grossly normal Affect: normal affect Attitude: cooperative
--- NOTE | 2022-08-13 14:02 | PC.NURSE ---
0936 - Mother is using the restroom. RN encouraged her to call for latching assistance if needed today and she voiced understanding. 1400 - Mother is sleeping. Baby A is held by grandmother and Baby B is swaddled in the bassinet. The feeding sheet demonstrates mother has been feeding her infants on a regular basis and there are appropriate stools and voids. Grandmother voiced understanding to have mother call if she needs any assistance with latching, feeding her infants or when she wakes up to consult with how is going so far.
[2022-08-13 17:37] LABS: Hematocrit 26.8 % (37.0-47.0); Hemoglobin 8.3 g/dL (12.0-15.0); Mean Corpuscular Hemoglobin 26.5 pg (26-34); Mean Corpuscular Volume 85.6 fl (80-100); Mean Platelet Volume 12.7 fl (7.4-10.4); Platelet Count Result 141 k/mm3 (150-375); Red Blood Count 3.13 M/mm3 (4.2-5.4); Red Cell Distribution Width 19.5 % (11.5-14.5); White Blood Count 11.3 K/mm3 (4.5-10.0)
[2022-08-13 19:50] VITALS: BP 116/72; PULSE 94; RESP 18; TEMP 36.5; O2SAT 100
[2022-08-14] MEDS: HYDROcodone/acetaminophen (*CRX) 5-325 MG TABLET 1 TAB PO ×3 (03:19→18:40)
[2022-08-14] MEDS: IBUPROFEN 600 MG TABLET PO ×3 (03:19→18:40)
[2022-08-14] MEDS: SIMETHICONE 80 MG TAB.CHEW PO ×3 (03:19→18:40)
[2022-08-14] MEDS: POLYSACCHARIDE IRON COMPLEX 150 MG CAPSULE PO ×2 (08:00→18:41)
[2022-08-14 08:10] VITALS: BP 126/75; PULSE 90; RESP 18; TEMP 36.9; O2SAT 100
[2022-08-14] MEDS: DOCUSATE SODIUM 100 MG CAPSULE PO ×2 (09:00→18:40)
--- NOTE | 2022-08-14 09:22 | PM.OBPNVD ---
OB - PN: Subj Subjective Date/time seen: 08/14/22 09:22 21-year-old female 2 days status post primary section due to twin gestation with discordant growth and malpresentation of fetus B. she is ambulating though minimally, tolerating regular diet and is voiding. Pain is well controlled. Vital signs are stable Abdomen positive bowel sounds with bandage in place. Continue routine /postoperative care. Planned discharge home tomorrow. OB - PN: Obj Data Labs CBC & Chem 7: 08/13/22 17:11 08/12/22 07:45 Labs: Laboratory Results - last 24 hr 08/13/22 17:11 WBC 11.3 H RBC 3.13 L Hgb 8.3 L Hct 26.8 L MCV 85.6 MCH 26.5 MCHC 31.0 L RDW 19.5 H Plt Count 141 L MPV 12.7 H OB - PN A/P Time Spent With Patient Time: Total time spent is greater than 50% in coordination of care (as documented) at patient's floor/unit and/or counseling patient:
--- NOTE | 2022-08-14 09:24 | PM.OBDSVD ---
DS: Admitting Diagnosis Discharge Date 08/15/2022 Admitting Diagnosis 1. Thirty-eight week and 2 in 2. Twin gestation 3. Twin discordant growth 4. Mild presentation of fetus B OB - DS: Summary OB Procedures : NST and Ultrasound OB Procedures Intrapartum: OB Procedures: : None Peripartum Data Procedures: Procedures Operation Date: 08/05/22 07:30 <No data on this case meets the specified criteria> Operation Date: 08/12/22 08:30 Actual Procedure Side Surgeon p Section Bilateral Jasbir Khan MD Time Spent with Patient Time attestation: Total time spent providing and/or coordinating discharge services: DS: Data Data Completed and Pending Pending studies at discharge: Pending at discharge 08/12/22 09:59 Surgical [PTH] Routine Labs on day of discharge: Labs from last 24 hours 08/13/22 17:11 WBC 11.3 H RBC 3.13 L Hgb 8.3 L Hct 26.8 L MCV 85.6 MCH 26.5 MCHC 31.0 L RDW 19.5 H Plt Count 141 L MPV 12.7 H Discharge Plan Discharge Discharging Clinician: Jasbir Khan Patient Disposition: Home, Self-Care Activity: as tolerated Diet: as tolerated Wound Care Instructions: other - see discharge instructions Discharge Instructions: Return to office in 1 week for dressing removal and staple removal. Patient Instructions: Antibiotic Form Stand Alone Forms: General Discharge Information Follow-up/Referrals: Jasbir Khan MD [Physician] - 3 Weeks Discharge Medications: New hydrocodone-acetaminophen 5-325 mg Tablet 1 tablet PO Q4-6H PRN (Reason: Moderate Pain (4-6)) Qty: 30 0RF ibuprofen 600 mg Tablet 600 mg PO Q6H PRN (Reason: Cramping) Qty: 30 0RF Continued Classic 28 mg iron- 800 mcg tablet PO ferrous sulfate 325 mg (65 mg iron) tablet 325 mg PO DAILY Discontinued aspirin 81 mg tablet,delayed release (DR/EC) 81 mg PO DAILY folic acid 800 mcg tablet 0.8 mg PO DAILY Date of admission: 08/12/22 06:37 Primary Care Provider: UNKNOWN,DOCTOR Admitting Provider: Jasbir Khan Attending physician on admission: Jasbir Khan Condition: Stable
[2022-08-14 10:00] VITALS: PULSE 90; RESP 18; O2SAT 100
--- NOTE | 2022-08-14 12:08 | PC.NURSE ---
[id number] Consulted with patient and she is sleeping. Baby B is quiet, alert and awake so RN decides to check on the feeding schedules. Mother wakes up with the movement in the room and discussion was initiated about how the feedings were going. Mother is concerned that her (baby B) is spitting up after and being supplemented. Encouraged mother to breastfeed and supplement slowly so as to not over feed, waking to see if there is air that needs to be burped out prior to feeding, and reclining infant 30 minutes after a feeding. Mother led the conversation with her experience and plan to feed her infants so far and her ability to independently latch optimally without discomfort, and continue with the plan of attempting to breastfeed and supplement baby B at this time. Mother is feeding appropriately for growth of infant and understands stimulating infant to eat if needed. Infants have had appropriate feedings in the last 24 hours meeting the outcomes for weight, output and jaundice at this time. Mother states she is confident to continue feeding her infants at home or when to call for assistance and denies any additional assistance or education at this time. Reinforced understanding of milk production, transition of milk, signs of adequate intake, prevention/relief of engorgement, responsive after visualizing feeding cues, the different methods of stimulating infant to breastfeed 2-3 hours after the start of the last feeding, community resources, medication information reviewed per [employer] and when to call a provider using the resource of the mom and baby guide/[facility] website. Mother voiced understanding of the education shared. Reported to the primary RN.
[2022-08-14 19:51] VITALS: BP 119/77; PULSE 94; RESP 18; TEMP 36.6; O2SAT 100
[2022-08-15] MEDS: IBUPROFEN 600 MG TABLET PO ×3 (04:39→23:50)
[2022-08-15] MEDS: SIMETHICONE 80 MG TAB.CHEW PO ×4 (04:39→23:51)
[2022-08-15] MEDS: HYDROcodone/acetaminophen (*CRX) 5-325 MG TABLET 1 TAB PO ×4 (04:39→23:51)
[2022-08-15 08:00] VITALS: PULSE 94; RESP 18; O2SAT 100
[2022-08-15 08:15] VITALS: BP 138/79; PULSE 80; RESP 18; TEMP 36.6; O2SAT 100
[2022-08-15] MEDS: DOCUSATE SODIUM 100 MG CAPSULE PO ×2 (10:03→17:19)
[2022-08-15] MEDS: POLYSACCHARIDE IRON COMPLEX 150 MG CAPSULE PO ×2 (10:04→17:19)
[2022-08-15] MEDS: MULTIVIT/MIN/PREN/FOL AC/IRON TABLET 1 TAB PO (10:04)
--- NOTE | 2022-08-15 11:50 | PC.NURSE ---
Report received that both twins will be supplemented with formula. twin Mother continues to breastfeed. Discussed the possibility of delayed lactogenesis 2 related to PCOS, hypoplasia breast, QBL >1200, multiples, hgb of 8.3, and lack of rest.
[2022-08-15 19:45] VITALS: BP 133/89; PULSE 92; RESP 18; TEMP 36.6; O2SAT 100
[2022-08-15 23:50] VITALS: BP 118/80
[2022-08-16] MEDS: HYDROcodone/acetaminophen (*CRX) 5-325 MG TABLET 1 TAB PO ×2 (08:34→14:17)
[2022-08-16] MEDS: SIMETHICONE 80 MG TAB.CHEW PO (08:34)
[2022-08-16] MEDS: POLYSACCHARIDE IRON COMPLEX 150 MG CAPSULE PO (08:35)
[2022-08-16] MEDS: DOCUSATE SODIUM 100 MG CAPSULE PO (08:35)
[2022-08-16] MEDS: MULTIVIT/MIN/PREN/FOL AC/IRON TABLET 1 TAB PO (08:35)
[2022-08-16] MEDS: IBUPROFEN 600 MG TABLET PO ×2 (08:36→14:18)
[2022-08-16 09:18] VITALS: BP 139/89; PULSE 92; RESP 16; TEMP 37; O2SAT 100
--- NOTE | 2022-08-16 10:31 | PM.OBPNVD ---
OB - PN: Subj Subjective Date/time seen: 08/16/22 10:31 Patient comments: no complaints and pain well controlled baby status: doing well OB - PN: Obj Data Labs CBC & Chem 7: 08/13/22 17:11 08/12/22 07:45 OB - PN A/P Plan day: 4 Plan: discharge home Time Spent With Patient Time: Total time spent is greater than 50% in coordination of care (as documented) at patient's floor/unit and/or counseling patient: Exam Narrative: bandage intact : Bimanual exam- vagina & uterus: other (Uterus firm, nt @U)
[2022-08-16 12:41] LABS: Appearance Urine Slightly Cloudy (Clear); Bilirubin Urine Negative (Negative); Blood Urine Negative (Negative); Color Urine Yellow (Yellow); Glucose Urine UA Negative (Negative); Ketones Urine Negative (Negative); Leukocyte Esterase Ur Negative LEU/UL (Negative); Nitrate Urine Negative (Negative); Protein Urine 1+ mg/dL (Negative); Specific Grav Ur 1.025 (1.001-1.035); Urobilinogen Urine 0.2 mg/dL (<2.0); pH Urine 6.5 (5.0-9.0)
[2022-08-16 12:54] LABS: Amorphous Sediment Urine Few; Bacteria Urine Trace /hpf; Mucus Urine Heavy /lpf; Squamous Epithelial Cell Urine Occasional /hpf (Few)
[2022-08-16 12:55] LABS: Add Urine Microscopic? YES
--- NOTE | 2022-08-16 13:00 | PC.NURSE ---
Patient viewed the discharge video Mother & Baby Care, The First Two Weeks . Patient was given the opportunity and encouraged to ask questions. Patient verbalized understanding of information shared and has been given the mother/baby guide for home reference.
[2022-08-18 08:33] VITALS: BP 135/87; PULSE 99; RESP 20; TEMP 37.2; O2SAT 100
--- NOTE | 2022-08-22 07:32 | PM.OBDSVD ---
DS: Admitting Diagnosis Discharge Date 08/16/22 Admitting Diagnosis OB - DS: Summary OB Procedures : NST OB Procedures Intrapartum: OB Procedures: : None Peripartum Data Procedures: Procedures Operation Date: 08/05/22 07:30 <No data on this case meets the specified criteria> Operation Date: 08/12/22 08:30 Actual Procedure Side Surgeon p Section Bilateral Jasbir Khan MD Time Spent with Patient Time attestation: Total time spent providing and/or coordinating discharge services: DS: Data Data Completed and Pending Completed studies during hospitalization: Pending at discharge 08/12/22 09:59 Surgical [PTH] Routine Discharge Plan Discharge Consulting providers: Gali Oro ; Jolene Mora ; Morgan Mejia ; Felicity Fox Discharging Clinician: Jasbir Khan Patient Disposition: Home, Self-Care Activity: as tolerated Diet: as tolerated Wound Care Instructions: other - see discharge instructions Discharge Instructions: Return to office in 1 week for dressing removal and staple removal. Education: Mom and Baby Guide Given to: Mother Follow-Up: Call your delivering provider's office for an appointment to be seen in: Office visit in 1 week for dressing/staple removal & office visit in 3 wks [facility]. Appointment Date/Time: August 18, 2022 at 8:00 am What to expect at your follow-up visit: Physical Assessment Call [phone] if you are unable to keep your appointment time. BREAST CARE: * Wear a snug supportive bra. * For engorgement discomfort: Breast Feeding: * Apply warm moist washcloths * Express milk as needed to relieve engorgement * Wear loose clothing Bottle Feeding: * May apply ice packs * For sore nipples: * Identify correct latch-on * Apply warm moist washcloths before and after nursing * Air dry nipples after nursing * May apply Lansinoh cream to nipples ABDOMINAL INCISION: (if applicable) * Allow incision to air dry * Do NOT use lotions for powders on your incision * When showering, allow soap and water to run over the incision, but do not wash incision PERINEAL CARE: * Until bleeding stops, use your yodit bottle after urinating * Change your pad frequently throughout the day * You may take sitz baths several times a day (fill your bathtub with warm water and soak for 20 minutes.) Do NOT bathe in the water * No tub baths until seen by your physician - You may shower ACTIVITY: * Rest as much as possible. * Do not exercise or lift anything heavier than your baby (such as laundry or other children.) * Avoid stairs or driving as much as possible. * Do not put anything into the vagina. No douching, tampons, or sexual activity until seen by physician. NOTIFY PHYSICIAN IF YOU HAVE ANY QUESTIONS OR IF ANY OF THE FOLLOWING SYMPTOMS OCCUR: * If your incision becomes red, swollen, or more painful than what you have experienced in the hospital. * If your vaginal bleeding becomes foul smelling. * If your vaginal bleeding becomes more heavy than a period or if your bleeding changes from pink to bright red. However, you may pass an occasional walnut-sized clot once or twice for the first week . * If you experience a sharp, shooting pain in you calves. * If you discover a hard, reddened area on your breast or if you experience flu-like symptoms. DIET: * Eat regular, well-balanced meals. * Drink plenty of fluids daily. If , drink to thirst. Patient Instructions: Antibiotic Form Stand Alone Forms: General Discharge Information Follow-up/Referrals: Jasbir Khan MD [Physician] - 3 Weeks Discharge Medications: New hydrocodone-acetaminophen 5-325 mg Tablet 1 tablet PO Q4
== END 2022-08-16 17:30 | disposition home or self-care (01) | DRG 540 ==
LOC: ANHLDR 06:44 → ANHOB2 12:45
PROVIDERS: Obstetrics & Gynecology; Obstetrics & Gynecology Gynecology; Admitting Provider Obstetrics & Gynecology; Visit Provider Obstetrics & Gynecology
PROC: 10D00Z1 Extraction of Products of Conception, Low, Open Approach (ICD-10-PCS; CPT 59514; principal; 2022-08-12 08:30)
DX: O30.043 Twin pregnancy, dichorionic/diamniotic, third trimester (principal); Z37.2 Twins, both liveborn; Z3A.38 38 weeks gestation of pregnancy; O32.1XX2 Maternal care for breech presentation, fetus 2; O69.81X0 Labor and delivery complicated by cord around neck, without compression, not applicable or unspecified
CPT/HCPCS: 36415; 80053; 81001; 85025; 85027; 85055; 86592; 86703; 86762; 86850; 86900; 86901; 87086; 87340; 88307; A9270; G0432; J0131; J0690; J1100; J1885; J2274; J2370; J2405; J2590; J3010; J7120

== ENCOUNTER 2023-04-05 17:35 | Emergency (ER) | payer OTHER, SELFPAY ==
[2023-04-05 17:43] VITALS: BP 123/78; PULSE 87; RESP 16; TEMP 36.3; O2SAT 100
--- NOTE | 2023-04-05 18:06 | ED.SKABFB ---
HPI - Skin/Abscess/Foreign Bdy General Chief complaint: Skin/Abscess/Foreign Body Stated complaint: breast issue Time Seen by Provider: 04/05/23 17:50 Source: patient and RN notes reviewed Mode of arrival: ambulatory Limitations: no limitations History of Present Illness HPI narrative: Patient presents today complaining of irritation, itchiness, and pain to the bilateral nipple area for the past 10 days, worse since yesterday. She is exclusively her twins for the past 8 months. States they have been breast feeding well without any issues. She has been introducing several new foods in the past 10 days. States she has looked in her Children's mouths and has not noticed any indications of thrush. She has used some [id number] nipple cream for the past week without improvement of symptoms. Related Data Allergies Allergy/AdvReac Type Severity Reaction Status Date / Time No Known Allergies Allergy Verified 04/05/23 17:42 Review of Systems Review of Systems: CONSTITUTIONAL: Denies body aches, fever, chills, or sweats. EYES: Denies visual changes, redness, or discharge. ENT: Denies rhinorrhea, congestion, sore throat, or otalgia. CARDIOVASCULAR: Denies chest pain, palpitations, or edema. RESPIRATORY: Denies cough or dyspnea. GASTROINTESTINAL: Denies abdominal pain, nausea, vomiting, or diarrhea. GENITOURINARY: Denies dysuria or hematuria. SKIN: + nipple rash MUSCULOSKELETAL: Denies back pain, joint pain, or myalgia. NEUROLOGIC: Denies headache, numbness, tingling, or weakness. PSYCH: Denies depression or anxiety. [facility] Past Medical History Medical History Amenorrhea, primary PCOS (polycystic ovarian syndrome) Surgical History Surgical History Delivery by section (08/12/22) primary c/s Twins Family History Family History Mother Hypertension Hypothyroidism Social History Social History Smoking status: Never smoker Alcohol intake: never Substance use: never Substance use type: does not use Lack of Transportation: No Lack of Food: Never True Current Housing: I Have Housing Concerned About Future Housing: No Difficulty Paying Gas/Electric Bills: No Difficulty Paying for Meds: No Currently Unemployed: No Education: High School Diploma/GED Difficulty w/ Childcare or Family Care: No Living arrangements: other Additional living arrangements comments: Engaged Occupation/Education: unemployed Gender identity (if verbalized by the patient): Female Sexual Orientation (if Verbalized by the Patient): Straight or Heterosexual Spiritual care concerns: No Comments At time of signature, I have reviewed and agree with nursing past medical, surgical, social and family history unless otherwise noted. Please see nursing chart for further information. There is no relevant family history pertinent to the presenting complaint Exam Narrative: GENERAL: Well-appearing, well-nourished, and in no acute distress. HEAD: Normocephalic, atraumatic. EYES: EOMI. No redness or drainage. Conjunctivae normal. ENT: Mucous membranes pink and moist. NECK: Normal AROM. CHEST: No respiratory distress. EXTREMITIES: Normal range of motion. No edema. SKIN: Warm, dry. Capillary refill normal. Normal skin turgor. Erythematous scaly rash to the bilateral nipple and areolar area. No edema, crusting, or drainage. NEURO: No focal deficits. Alert and oriented x3. Gait steady. PSYCH: Normal affect. No signs of depression or anxiety. Course Course Level of Care: Express Care Visit Vital Signs Vital signs: Vital Signs Temperature 97.4 F L 04/05/23 17:43 Pulse Rate 87 04/05/23 17:43 Respiratory Rate 16 04/05/23 17:43 B
== END 2023-04-05 18:18 | disposition home or self-care (01) ==
PROVIDERS: Emergency Provider Nurse Practitioner
DX: B37.89 Other sites of candidiasis (principal); E28.2 Polycystic ovarian syndrome
CPT/HCPCS: 99211; G0463

== ENCOUNTER 2023-08-10 13:49 | Emergency (ER) | payer OTHER, SELFPAY ==
[2023-08-10 13:58] VITALS: BP 135/87; PULSE 93; RESP 16; TEMP 36.5; O2SAT 99
--- NOTE | 2023-08-10 14:23 | ED.EAR ---
HPI - Ear Problem General Chief complaint: Ear Stated complaint: Right Ear Irritation Time Seen by Provider: 08/10/23 14:10 Source: patient, RN notes reviewed and old records reviewed Mode of arrival: ambulatory Limitations: no limitations History of Present Illness HPI Narrative: 22 year old female who presents to [facility] with complaints of 2 day history of right ear ache and stuffy nose and has been taking Tylenol for her discomfort.Patient is presently nursing twin boys. Patient reports that her hearing is muffled in her right ear and the pain is constant and throbbing. MD Complaint: ear pain Location: right ear Severity: severe Discharge from ear: Reports no Treatment prior to arrival: oral analgesic (Tylenol) Related Data Allergies Allergy/AdvReac Type Severity Reaction Status Date / Time No Known Allergies Allergy Verified 04/05/23 17:42 Review of Systems Review of Systems: CONSTITUTIONAL: Denies malaise, chills, sweats, or fever. EYES: Denies visual changes, redness, or discharge. ENT: Reports rhinorrhea, congestion, sinus pain,right otalgia and no sore throat. CARDIOVASCULAR: Denies chest pain, palpitations, or edema. RESPIRATORY: Reports no cough.? Denies dyspnea. GASTROINTESTINAL: Denies abdominal pain, nausea, vomiting, diarrhea SKIN: Denies rash or itching. MUSCULOSKELETAL: Denies myalgia. NEUROLOGIC: Denies headache. All systems reviewed & are unremarkable except as noted in HPI and below PMFSH Past Medical History Medical History Amenorrhea, primary PCOS (polycystic ovarian syndrome) Surgical History Surgical History Delivery by section (08/12/22) primary c/s Twins Family History Family History Mother Hypertension Hypothyroidism Social History Social History Smoking status: Never smoker Alcohol intake: never Substance use: never Substance use type: does not use Lack of Transportation: No Lack of Food: Never True Current Housing: I Have Housing Concerned About Future Housing: No Difficulty Paying Gas/Electric Bills: No Difficulty Paying for Meds: No Currently Unemployed: No Education: High School Diploma/GED Difficulty w/ Childcare or Family Care: No Living arrangements: other Additional living arrangements comments: Engaged Occupation/Education: unemployed Gender identity (if verbalized by the patient): Female Sexual Orientation (if Verbalized by the Patient): Straight or Heterosexual Spiritual care concerns: No Comments At time of signature, agree with nursing past medical, surgical, social and family history. There is no relevant family history pertinent to the presenting complaint Exam Narrative: GENERAL: Well-appearing, well-nourished, and in no acute distress. HEAD: Normocephalic EYES: PERRLA, conjunctivae clear ENT: Nares clear, turbinates edematous and erythematous, clear discharge. Mucous membranes moist.Tight RM red and bulging, Left TM pearly garcia with dull light reflex bilaterally; no tragal tenderness. Oropharynx erythematous without lesions. Tonsils not enlarged and without exudate, no drooling, no hoarseness, no trismus, uvula midline. NECK: Supple. No lymphadenopathy CHEST: Clear to auscultation, breath sounds equal. No wheezing, rhonchi, rales, or stridor. No respiratory distress, speaks in full sentences.no cough noted, SAO2 99% on room air HEART: Regular rate and rhythm. No murmur heard. SKIN: Warm, dry, no rash. NEURO: Alert and oriented x3. PSYCH: Normal mood and affect Course Course Emergency Course: Patient is aware of diagnosis, understands and agrees to treatment plan.? Anticipatory guidance given.? Patient agrees to follow-up as
== END 2023-08-10 14:35 | disposition home or self-care (01) ==
PROVIDERS: Emergency Provider Registered Nurse
DX: H66.91 Otitis media, unspecified, right ear (principal); E28.2 Polycystic ovarian syndrome
CPT/HCPCS: 99213; G0463

== ENCOUNTER 2024-04-24 06:17 | Emergency (ER) | payer OTHER, SELFPAY ==
[2024-04-24] VITALS (25 sets, daily range): BP systolic 121–144; BP diastolic 65–104; PULSE 81–123; RESP 13–22; TEMP 36.9; O2SAT 88–100
--- NOTE | ~2024-04-24 | US_ITS ---
EXAMINATION: US OB <=14 wk fetus w TV DATE: 04/24/2024 08:51 INDICATION: Ectopic TECHNIQUE: Real-time pelvic ultrasound utilizing both a transvaginal and transabdominal probe was pe rformed. The interpreting radiologist was not present for the study. COMPARISON: None. FINDINGS: The uterus measures 10.0 x 5.8 x 7.0 cm. There is an intrauterine gestational sac with double decidu al sign but no discernible yolk sac or pole likely due to early stage of . The insect diameter measures 6 mm, which correlates with an estimated gestational age of 5 weeks and 2 days. The right ovary measures measures 3.6 x 3.3 x 2.9 cm. The left ovary measures 2.8 x 2.1 x 3.0 cm. The re are couple anechoic cysts in the left ovary measuring up to 1.8 cm. Vascular flow identified in jaspreet th ovaries on color Doppler. There is no free fluid in the pelvis. IMPRESSION: 1. Single intrauterine gestational sac with no discernible yolk sac or pole likely due to early stage of . 2. Gestational age by ultrasound based upon mean sac diameter of 5 weeks 2 day(s) +/- 3 day(s) with ultrasound estimated date of delivery ([facility]) of 12/23/2024. Reviewed, dictated and finalized at location A. IMPRESSION: 1. Single intrauterine gestational sac with no discernible yolk sac or po le likely due to early stage of . 2. Gestational age by ultrasound based upon mean sac diameter of 5 weeks 2 day (s) +/- 3 day(s) with ultrasound estimated date of delivery ([facility]) of 12/23/2024.
--- NOTE | 2024-04-24 07:06 | ED.FEMALEGU ---
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 March 13, 2024, 2 para 1 0. Related Data Allergies Allergy/AdvReac Type Severity Reaction Status Date / Time No Known Allergies Allergy Verified 04/24/24 07:15 Review of Systems Review of Systems: All systems reviewed & are unremarkable except as noted in HPI and below PMFSH Past Medical History Medical History Amenorrhea, primary PCOS (polycystic ovarian syndrome) Surgical History Surgical History Delivery by section (08/12/22) primary c/s Twins Family History Family History Mother Hypertension Hypothyroidism Social History Social History Smoking status: Never smoker Second hand tobacco smoke exposure: No Alcohol intake: never Substance use: never Substance use type: does not use Do You Feel Safe in your Home?: Yes Lack of Transportation: No Lack of Food: Never True Current Housing: I Have Housing Concerned About Future Housing: No Difficulty Paying Gas/Electric Bills: No Difficulty Paying for Meds: No Currently Unemployed: No Education: High School Diploma/GED Difficulty w/ Childcare or Family Care: No Living arrangements: other Additional living arrangements comments: Occupation/Education: other 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 Gender identity (if verbalized by the patient): Female Sexual Orientation (if Verbalized by the Patient): Straight or Heterosexual Spiritual care concerns: No Exam Narrative: GENERAL APPEARANCE: WELL-DEVELOPED, WELL-NOURISHED SKIN: NORMAL COLOR HEAD: NORMOCEPHALIC, NONTRAUMATIC EYES: CLEAR CONJUNCTIVA ENT: OROPHARYNX NORMAL, EARS NORMAL, NOSE NORMAL NECK: SUPPLE, NONTENDER CHEST AND RESPIRATORY: AIRWAY PATENT, NO RESPIRATORY DISTRESS, NO ACCESSORY MUSCLE USE HEART: REGULAR RATE/RHYTHM ABDOMEN: SOFT, NONTENDER, NO ORGANOMEGALY, QUIET BOWEL SOUNDS VASCULAR: NORMAL PERIPHERAL PULSES, NORMAL CAPILLARY REFILL. 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, NO GROSS MOTOR DEFICIT : Speculum Exam - Vagina: normal appearance of the vagina, normal vaginal discharge and vaginal bleeding (NO VAGINAL BLEEDING) Speculum Exam - Cervix: normal appearance of the cervix and Cervical os closed Bimanual Exam- Adnexa, other: no masses Course Vital Signs Vital signs: Vital Signs Temperature 36.9 C 04/24/24 06:20 Pulse Rate 123 H 04/24/24 06:20 Respiratory Rate 19 04/24/24 06:20 Blood Pressure 144/104 H 04/24/24 06:20 Pulse Oximetry 100 04/24/24 06:20 Oxygen Delivery Room Air 04/24/24 06:20 Temperature 36.9 C 04/24/24 06:20 Pulse Rate 96 04/24/24 09:30 Respiratory Rate 22 H 04/24/24 09:30 Blood Pressure 121/71 04/24/24 09:17 Pulse Oximetry 100 04/24/24 09:17 Oxygen Delivery Room Air 04/24/24 06:20 MDM - Female Genitourinary MDM Narrative Medical decision making narrative: DIFFERENTIAL DIAGN
[2024-04-24 07:28] LABS: Basophils Percent Auto 0.3 % (0.2-1.2); Eosinophils Absolute Auto 0.1 K/mm3 (0-0.3); Eosinophils Percent Auto 1.5 % (0-4.4); Hematocrit 43.4 % (37.0-47.0); Hemoglobin 14.2 g/dL (12.0-15.0); Immature Granulocyte Absolute 0.05 K/mm3 (0.00-0.031); Immature Granulocyte Percent A 0.5 % (0-0.5); Lymphocytes Absolute Auto 2.55 K/mm3 (0.9-3.2); Lymphocytes Percent Auto 27.1 % (18.3-44.2); Mean Corpuscular HGB Conc 32.7 g/dl (32-36); Mean Corpuscular Hemoglobin 28.2 pg (26-34); Mean Corpuscular Volume 86.1 fl (80-100); Mean Platelet Volume 10.6 fl (7.4-10.4); Monocytes Absolute Auto 0.6 K/mm3 (0.1-0.6); Monocytes Percent Auto 6.6 % (2.6-8.5); Platelet Count Result 188 k/mm3 (150-375); Red Blood Count 5.04 M/mm3 (4.2-5.4); Red Cell Distribution Width 13.2 % (11.5-14.5); White Blood Count 9.4 K/mm3 (4.5-10.0)
[2024-04-24 07:30] LABS: Appearance Urine Clear (Clear); Bilirubin Urine Negative (Negative); Blood Urine Negative (Negative); Color Urine Yellow (Yellow); Glucose Urine UA Negative (Negative); Ketones Urine Negative (Negative); Leukocyte Esterase Ur Negative LEU/UL (Negative); Nitrate Urine Negative (Negative); Protein Urine Negative (Negative); Specific Grav Ur 1.022 (1.001-1.035); pH Urine 6.5 (5.0-9.0)
[2024-04-24 07:36] LABS: Add Urine Microscopic? NO
[2024-04-24 07:37] LABS: Alanine Aminotransferase 35 U/L (6-35); Albumin Level 4.3 g/dL (3.5-5.1); Alkaline Phosphatase 62 U/L (38-126); Anion Gap 10 mmol/L (4-12); Aspartate Amino Transferase 26 U/L (14-36); Bilirubin,Total 1.5 mg/dL (0.2-1.3); Blood Urea Nitrogen 11 mg/dL (7-17); Calcium 8.7 mg/dL (8.4-10.2); Carbon Dioxide 25 mmol/L (22-30); Chloride 104 mmol/L (98-107); Estimated CRCL calculation 148 ml/min; Estimated Glomerular Filt Rate > 60; Glucose 98 mg/dL (65-110); Potassium 3.5 mmol/L (3.4-5.0); Sodium 139 mmol/L (137-145)
--- NOTE | 2024-04-24 09:12 | PC.NURSE ---
IV fluids not given per verbal order by EDP, fluids no longer needed.
== END 2024-04-24 09:50 | disposition home or self-care (01) ==
PROVIDERS: Emergency Provider Emergency Medicine
DX: O20.0 Threatened abortion (principal); O99.281 Endocrine, nutritional and metabolic diseases complicating pregnancy, first trimester; E28.2 Polycystic ovarian syndrome; Z3A.01 Less than 8 weeks gestation of pregnancy
CPT/HCPCS: 36415; 76801; 76817; 80053; 81003; 81025; 84702; 85025; 85461; 86850; 86900; 86901; 99284

== ENCOUNTER 2024-05-23 12:44 | Emergency (ER) | payer OTHER, SELFPAY ==
[2024-05-23 12:50] VITALS: BP 135/88; PULSE 87; RESP 18; TEMP 36.4; O2SAT 99
--- NOTE | 2024-05-23 12:53 | ED.DENTAL ---
HPI - Dental/Oral General Chief complaint: Dental/Oral Stated complaint: Dental Pain Time Seen by Provider: 05/23/24 13:25 Mode of arrival: ambulatory Limitations: no limitations History of Present Illness HPI Narrative: 23-year-old female presents with concern of for right upper dental pain. She reports she has wisdom teeth coming in that normally cause him some discomfort but she has now had some swelling, redness and some foul taste when she bites down in that area. She is 9 weeks . She denies fever, aches, chills, sweats Complaint: tooth pain Related Data Allergies Allergy/AdvReac Type Severity Reaction Status Date / Time No Known Allergies Allergy Verified 05/23/24 12:46 Review of Systems Review of Systems: CONSTITUTIONAL: Denies malaise, chills, sweats, or fever. EYES: Denies visual changes ENT: Denies rhinorrhea, congestion, sinus pain, otalgia or sore throat. Reports right upper dental pain CARDIOVASCULAR: Denies chest pain, palpitations RESPIRATORY: Denies cough or dyspnea. SKIN: Denies rash or itching. MUSCULOSKELETAL: Denies myalgia. NEUROLOGIC: Denies numbness, weakness, or headache. All systems reviewed & are unremarkable except as noted in HPI and below PMFSH Past Medical History Medical History Amenorrhea, primary PCOS (polycystic ovarian syndrome) Surgical History Surgical History Delivery by section (08/12/22) primary c/s Twins Family History Family History Mother Hypertension Hypothyroidism Social History Social History Smoking status: Never smoker Second hand tobacco smoke exposure: No Alcohol intake: never Substance use: never Substance use type: does not use Do You Feel Safe in your Home?: Yes Lack of Transportation: No Lack of Food: Never True Current Housing: I Have Housing Concerned About Future Housing: No Difficulty Paying Gas/Electric Bills: No Difficulty Paying for Meds: No Currently Unemployed: No Education: High School Diploma/GED Difficulty w/ Childcare or Family Care: No Living arrangements: other Additional living arrangements comments: Occupation/Education: other 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 There is no relevant family history pertinent to the presenting complaint Exam Narrative: GENERAL: Well-appearing, well-nourished, and in no acute distress. HEAD: Normocephalic, atraumatic. EYES: PERRLA, sclera clear ENT: Nares clear, turbinates pink, no rhinorrhea or epistaxis. Mucous membranes moist. TM pearly garcia with sharp light reflex bilaterally; no tragal tenderness. Oropharynx without erythema or lesions. Tonsils not enlarged and without exudate. Erythema, edema noted behind tooth 1.. No facial swelling noted. No periapical abscess noted NECK: Supple. No lymphadenopathy. CHEST: No respiratory distress. Speaks in full sentences. HEART: Regular rate and rhythm. SKIN: Warm, dry, no visible rash. NEURO: Alert and oriented x3. PSYCH: Normal mood and affect Course Course Emergency Course: Patient is aware of diagnosis, understands and agrees to treatment plan. Anticipatory guidance given. Patient agrees to follow-up as directed and is aware of reasons to seek care at the emergency department. Portions of this record may have been created with voice recognition software Level of Care: Express Care Visit Vital Signs Vital signs: Vital Signs Temperature 97.6 F 05/23/24 12:50 Pulse Rat
== END 2024-05-23 13:30 | disposition home or self-care (01) ==
PROVIDERS: Emergency Provider Nurse Practitioner
DX: K08.89 Other specified disorders of teeth and supporting structures (principal); E28.2 Polycystic ovarian syndrome
CPT/HCPCS: 99213; G0463

== ENCOUNTER 2024-05-24 16:07 | Outpatient (CLI) | payer OTHER, SELFPAY ==
--- NOTE | ~2024-05-24 | US_ITS ---
EXAMINATION: US OB <=14 wk fetus w TV DATE: 05/24/2024 17:09 INDICATION: Confirmation of viability TECHNIQUE: Real-time transabdominal and transvaginal obstetric ultrasound. FINDINGS: Ultrasound dated 04/24/2024 The uterus measures 11.3 x 6 x 7.8 cm. There is an intrauterine gestational sac, with pole iden tified. The crown rump length measures 2.3 cm. heart tones are identified measuring 173. Ova ramón within normal limits. Yolk sac is present. IMPRESSION: 1. SL IUP with an EGA of 9 weeks, 4 days (EDC by initial ultrasound of 12/23/2024). Reviewed, dictated and finalized at location B. IMPRESSION: 1. SL IUP with an EGA of 9 weeks, 4 days (EDC by initial ultrasound of ).
== END 2024-05-24 16:08 | disposition home or self-care (01) ==
PROVIDERS: Visit Provider Advanced Practice Midwife
DX: O36.80X0 Pregnancy with inconclusive fetal viability, not applicable or unspecified (principal); Z3A.00 Weeks of gestation of pregnancy not specified
CPT/HCPCS: 76801; 76817

== ENCOUNTER 2024-07-08 11:17 | Emergency (ER) | payer OTHER, SELFPAY ==
[2024-07-08 11:36] VITALS: BP 136/87; PULSE 89; RESP 16; TEMP 36.5; O2SAT 98
--- NOTE | 2024-07-08 16:43 | ED.HA ---
HPI - Headache General Chief Complaint: Headache <Goldie Theodore APRN - Last Filed: 07/08/24 16:47> Stated Complaint: Headache, 16 weeks <Goldie Theodore APRN - Last Filed: 07/08/24 16:47> Time Seen by Provider: 07/08/24 16:30 <Goldie Theodore APRN - Last Filed: 07/08/24 16:47> Focused HPI: Patient is a 23-year-old female who presents with a 2 day history of a headache. She reports this is the worst headache of her life and it is pounding. Patient reports yesterday she was nauseated and was puking all day. She reports she is 16 weeks and was seen by an OBGYN in May but is transferring to a new OBGYN and has not been seen by them yet. Patient reports she has taken Tylenol to help control her pain but it has not helped. She denies fever but reports having chills. Patient reports her last bowel movement was 3 days ago, but this is normal for her. She denies chest pain, shortness for breath, urinary symptoms. Patient does endorse a yeast infection that she tried to treat with Monistat 7 but continues to linger. GENERAL: Well-appearing, well-nourished, and in no acute distress. HEAD: Normocephalic, atraumatic. CHEST: Clear to auscultation. ?No respiratory distress. HEART: Regular rate and rhythm.? NEURO: ?Alert and oriented x3. Patient screened in triage and initial orders placed.? ?Additional care and disposition to be based upon?diagnostic testing and treatment. <Godlie Theodore APRN - Last Filed: 07/08/24 16:47> Related Data Allergies/Adverse Reactions: Allergies Allergy/AdvReac Type Severity Reaction Status Date / Time No Known Allergies Allergy Verified 05/23/24 12:46 <Goldie Theodore APRN - Last Filed: 07/08/24 16:47> PMFSH Past Medical History Medical History: Medical History Amenorrhea, primary PCOS (polycystic ovarian syndrome) <Goldie Theodore APRN - Last Filed: 07/08/24 16:47> Surgical History Surgical History: Surgical History Delivery by section (08/12/22) primary c/s Twins <Goldie Theodore APRN - Last Filed: 07/08/24 16:47> Family History Family History: Family History Mother Hypertension Hypothyroidism <Goldie Theodore APRN - Last Filed: 07/08/24 16:47> Social History Social History: Social History Smoking status: Never smoker Second hand tobacco smoke exposure: No Alcohol intake: never Substance use: never Substance use type: does not use Do You Feel Safe in your Home?: Yes Lack of Transportation: No Lack of Food: Never True Current Housing: I Have Housing Concerned About Future Housing: No Difficulty Paying Gas/Electric Bills: No Difficulty Paying for Meds: No Currently Unemployed: No Education: High School Diploma/GED Difficulty w/ Childcare or Family Care: No Living arrangements: other Additional living arrangements comments: Occupation/Education: other 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 <Reece Stringer MD - Last Filed: 07/08/24 21:45> Vital Signs Vital signs: Vital Signs Temperature 97.7 F 07/08/24 11:36 Pulse Rate 89 07/08/24 11:36 Respiratory Rate 16 07/08/24 11:36 Blood Pressure 136/87 07/08/24 11:36 Pulse Oximetry 98 07/08/24 11:36 Temperatu
[2024-07-08] MEDS: METOCLOPRAMIDE HCL INJ 10 MG/2 ML VIAL IV PUSH (17:02)
[2024-07-08] MEDS: diphenhydrAMINE HCl INJ 50 MG/ML VIAL 25 MG IV PUSH (17:02)
--- NOTE | 2024-07-08 17:02 | PC.NURSE ---
EDP FAM Nguyen to administer meds IM
[2024-07-08 17:07] LABS: Basophils Percent Auto 0.1 % (0.2-1.2); Eosinophils Percent Auto 0.4 % (0-4.4); Hematocrit 42.4 % (37.0-47.0); Hemoglobin 14.1 g/dL (12.0-15.0); Immature Granulocyte Absolute 0.02 K/mm3 (0.00-0.031); Immature Granulocyte Percent A 0.2 % (0-0.5); Lymphocytes Absolute Auto 2.18 K/mm3 (0.9-3.2); Lymphocytes Percent Auto 26.1 % (18.3-44.2); Mean Corpuscular HGB Conc 33.3 g/dl (32-36); Mean Corpuscular Hemoglobin 28.8 pg (26-34); Mean Corpuscular Volume 86.5 fl (80-100); Mean Platelet Volume 10.5 fl (7.4-10.4); Monocytes Absolute Auto 0.5 K/mm3 (0.1-0.6); Monocytes Percent Auto 5.6 % (2.6-8.5); Neutrophils Absolute Auto 5.6 K/mm3 (1.3-6.7); Neutrophils Percent Auto 67.6 % (45.5-73.1); Platelet Count Result 170 k/mm3 (150-375); Red Cell Distribution Width 12.5 % (11.5-14.5); White Blood Count 8.4 K/mm3 (4.5-10.0)
[2024-07-08 17:16] LABS: Lactic Acid Reflex 2.9 mmol/L (0.7-2.0)
[2024-07-08 17:17] LABS: Alanine Aminotransferase 49 U/L (6-35); Albumin Level 4.3 g/dL (3.5-5.1); Alkaline Phosphatase 55 U/L (38-126); Anion Gap 14 mmol/L (4-12); Aspartate Amino Transferase 32 U/L (14-36); Bilirubin,Total 2.2 mg/dL (0.2-1.3); Blood Urea Nitrogen 6 mg/dL (7-17); Calcium 8.9 mg/dL (8.4-10.2); Carbon Dioxide 20 mmol/L (22-30); Chloride 104 mmol/L (98-107); Estimated CRCL calculation 166 ml/min; Estimated Glomerular Filt Rate > 60; Glucose 104 mg/dL (65-110); Potassium 3.3 mmol/L (3.4-5.0); Sodium 138 mmol/L (137-145)
[2024-07-08 17:25] LABS: Add Urine Microscopic? YES; Appearance Urine Cloudy (Clear); Bacteria Urine 1+ /hpf; Bilirubin Urine 1+ (Negative); Blood Urine Negative (Negative); Color Urine Dark Yellow (Yellow); Glucose Urine UA Negative (Negative); Ketones Urine 1+ mg/dL (Negative); Leukocyte Esterase Ur 1+ LEU/UL (Negative); Nitrate Urine Negative (Negative); Non Pathogenic Casts 0-2; Protein Urine 1+ mg/dL (Negative); Specific Grav Ur 1.027 (1.001-1.035); Squamous Epithelial Cell Urine Moderate /hpf (Few)
[2024-07-08 17:55] LABS: Influenza A QL RT-PCR Negative (Negative); Influenza B QL RT-PCR Negative (Negative); RSV RNA, RT-PCR Negative (Negative); SARS-CoV-2 RNA PCR Negative (Negative)
[2024-07-08] MEDS: SODIUM CHLORIDE 0.9% IV 1,000 ML 999 ML IV CONT (19:00)
[2024-07-08 19:17] VITALS: BP 154/76; PULSE 87; RESP 18; O2SAT 99
[2024-07-08] MEDS: ACETAMINOPHEN 325 MG TABLET 650 MG PO (19:17)
[2024-07-08] MEDS: LACTATED RINGERS 1,000 ML 999 ML IV CONT (19:27)
--- NOTE | 2024-07-08 19:29 | PC.NURSE ---
This RN and YADI Reilly attempted to get heart tones at this time. Doppler due to low battery. YADI Gautam notified as well.
[2024-07-08 20:04] LABS: Reflex Lactic Acid Yes or No Add Lactic
--- NOTE | 2024-07-08 20:52 | PC.NURSE ---
ED nursing staff unable to obtain heart tones. OB was called and came down to assess and could not get heart tones. Notified EDP YADI Delgado
--- NOTE | 2024-07-08 20:55 | PC.NURSE ---
FHT obtained by EDP Dr. Stringer and EDP YADI Delgado
== END 2024-07-08 21:01 | disposition home or self-care (01) ==
PROVIDERS: Registered Nurse; Emergency Provider Physician Assistant
DX: O26.892 Other specified pregnancy related conditions, second trimester (principal); R51.9 Headache, unspecified; R82.998 Other abnormal findings in urine; O99.282 Endocrine, nutritional and metabolic diseases complicating pregnancy, second trimester; E86.0 Dehydration; Z20.822 Contact with and (suspected) exposure to COVID-19; E28.2 Polycystic ovarian syndrome; Z3A.16 16 weeks gestation of pregnancy
CPT/HCPCS: 36415; 80053; 81001; 83605; 84702; 85025; 87086; 87088; 87637; 96361; 96374; 96375; 99284; A9270; J1200; J2765; J7030; J7120

== ENCOUNTER 2024-07-24 12:07 | Emergency (ER) | payer OTHER, SELFPAY ==
--- NOTE | 2024-07-24 12:09 | ED_ITS ---
HPI - Female Genitourinary General Chief complaint: Urogenital-Female Stated complaint: Vaginal Problems Time Seen by Provider: 07/24/24 12:37 Source: patient and RN notes reviewed Mode of arrival: ambulatory Limitations: no limitations History of Present Illness HPI Narrative: 23-year-old female who is presents concern for vaginal yeast infection. She reports she was treated with antibiotic for urinary tract infection in June and she believes she developed a yeast infection after taking that antibiotic. She took Monistat 7 with no results, her felt washing machine tender prescribed her torque on his all suppositories for 3 days which she used with only mild improvement. She reports external genitalia redness, itching, mild swelling. Denies vaginal discharge. She is in between obstetricians, she has an appointment with a new one on Thursday elicited complaint: UTI Related Data Allergies Allergy/AdvReac Type Severity Reaction Status Date / Time No Known Allergies Allergy Verified 07/24/24 12:09 Review of Systems Review of Systems: CONSTITUTIONAL: Denies malaise, chills, sweats, or fever. CARDIOVASCULAR: Denies chest pain, palpitations, or edema. RESPIRATORY: Denies cough or dyspnea. GASTROINTESTINAL: Denies abdominal pain, nausea, vomiting, diarrhea GENITOURINARY: Denies dysuria, frequency, urgency, suprapubic pressure. Denies flank pain or hematuria. SKIN: Reports external genitalia itching and redness MUSCULOSKELETAL: Denies back pain or myalgia. All systems reviewed & are unremarkable except as noted in HPI and below PMFSH Past Medical History Medical History Amenorrhea, primary PCOS (polycystic ovarian syndrome) Surgical History Surgical History Delivery by section (08/12/22) primary c/s Twins Family History Family History Mother Hypertension Hypothyroidism Social History Social History Smoking status: Never smoker Second hand tobacco smoke exposure: No Alcohol intake: never Substance use: never Substance use type: does not use Do You Feel Safe in your Home?: Yes Lack of Transportation: No Lack of Food: Never True Current Housing: I Have Housing Concerned About Future Housing: No Difficulty Paying Gas/Electric Bills: No Difficulty Paying for Meds: No Currently Unemployed: No Education: High School Diploma/GED Difficulty w/ Childcare or Family Care: No Living arrangements: other Additional living arrangements comments: Occupation/Education: other 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 There is no relevant family history pertinent to the presenting complaint Exam Narrative: GENERAL: Well-appearing, well-nourished, and in no acute distress. HEAD: Normocephalic. EYES: PERRLA, conjunctivae clear. NECK: Supple. No lymphadenopathy CHEST: Clear to auscultation. No respiratory distress. HEART: Regular rate and rhythm. SKIN: Warm, dry, no rash. NEURO: Alert and oriented x3. PSYCH: Normal mood and affect Course Course Emergency Course: Patient is aware of diagnosis, understands and agrees to treatment plan. Anticipatory guidance given. Patient agrees to follow-up as directed and is aware of reasons to seek care at the emergency department. Portions of this record may have been created with voice recognition software Level of Care: Express Care Visit Vital Signs Vital signs: Reviewed. MDM - Female Genitourinary MDM Narrative Medical decision making narrative: Exam findings show no acute concerns or changes; patient is non-toxic appearing and is in no distress. Patient is appropriate for outpatient treatment and follow-up. Differential Diagnosis Differential diagnosis: Likely urinary tract infection and cystitis Critical Care Time Critical Care Time Critical Care Time: No Discharge Plan Discharge Clinical Impression: Vaginal itching Patient Disposition: Home, Self-Care Condition: Stable Instructions: Yeast Infection (ED) Additional Instructions: 1) Please follow-up with your OBGYN for further evaluation 2) If you have any urgent concerns please go to the ER. 3) Please take medications as prescribed and continue taking your home medications as usual. 4) Please read and follow information included in discharge instructions. Prescriptions: New nystatin 100,000 unit/gram cream 1 applic topical QID Qty: 30 2RF nystatin 100,000 unit/gram powder 1 applic topical QID Qty: 30 2RF Follow-up/Referrals: UNKNOWN,DOCTOR [Non-Staff] - Time of Disposition: 12:46
[2024-07-24 12:15] VITALS: BP 135/81; PULSE 103; RESP 19; TEMP 36.6; O2SAT 100
== END 2024-07-24 14:06 | disposition home or self-care (01) ==
PROVIDERS: Emergency Provider Nurse Practitioner
DX: N89.8 Other specified noninflammatory disorders of vagina (principal); E28.2 Polycystic ovarian syndrome
CPT/HCPCS: 99213; G0463